=== PATIENT | female | born 1955 | race Two or more races ===

== ENCOUNTER → 2025-02-28 | Day surgery (SDC) | payer OTHER ==
[~2025-02-28] VITALS: Ht 157.5 cm; Wt 56.7 kg
[~2025-02-28] MED LIST: LIDOCAINE 2% (LOCAL ANESTH.) PF 5ml SDV ONE; PROPOFOL 10 MG/ML 20 ML IV ONE; VALS40TA2 PO
--- NOTE | 2025-02-28 09:23 | DVHHP2 ---
GI H&P Pre-Op Assessment Date: 02/28/25 Chief complaint: dysphagia HPI: per clinic note Past medical history: per clinic note Past surgical history: per clinic note Family history: per clinic note Physical exam: General: NAD, AAOX3 HEENT: PERRL, no scleral icterus, normal hearing, gums without lesions or bleeding, oropharynx clear without erythema or exudate. Neck: Supple without enlargement of the thyroid, or lymphadenopathy. Chest: Normal size and shape, no tenderness, lung zuniga clear to auscultation and percussion, nonlabored breathing. Heart: RRR, no murmur Abdomen: non-distended, no tenderness to palpation, +BS, no hepatosplenomegaly Extremities: no edema Neurological: CN II-XII intact, sensation intact in all extremities, 5+ strength in all extremities Skin: No rashes, No jaundice Assessment: - dysphagia Plan: - EGD - Risks (bleeding, infection, perforation, reaction to sedation medications and cardiopulmonary arrest) and benefit of the procedure were explained to patient. Patient agrees to undergo the procedure. RICHARD DANG MD Feb 28, 2025 09:23
[2025-02-28 10:16] VITALS: PULSE 91; RESP 13; TEMP 97.5; O2SAT 99
--- NOTE | 2025-02-28 10:19 | DVHOP2 ---
Operative Report DATE OF OPERATION: 02/28/25 PROCEDURE: Upper Endoscopy. PREOPERATIVE INDICATION: The patient is a 69 -year-old female undergoing endoscopy for dysphagia. POSTOPERATIVE DIAGNOSES: 1. Gastritis 2. Zenker diverticulum at the upper esophageal junction. PROCEDURE PERFORMED BY: Kal Shaw SCOPE: Olympus videoendoscope. ASA CLASS: 3 PREOPERATIVE MEDICATIONS: VICKY with Kartik NULL PROCEDURE IN DETAIL: After obtaining an informed consent, the patient was placed on left lateral decubitus position. The patient was then sedated with the above medications. A bite block was placed between her teeth. The endoscope was then passed through the oropharynx, into the esophagus, and through the stomach and pylorus up to the second and third part of the duodenum. Duodenum was normal in appearance. There was gastritis. Gastric biopsy obtained using cold forceps biopsies. The GE junction was normal in appearance at 35 cm. There was a Zenker diverticulum at the upper esophageal junction which was 15 cm from the incisors. The endoscope was then withdrawn. The patient tolerated the procedure well without difficulty. COMPLICATIONS : None SPECIMENS: Gastric biopsies DISPOSITION: D/C to home PLAN: 1. Await for biopsy result 2. Patient will need to be referred to a cardiothoracic surgeon at higher level care (e.g [place] or [facility]) to repair of the Zenker diverticulum. KAL SHAW MD Feb 28, 2025 10:19
--- NOTE | 2025-02-28 10:19 | DVHDS2 ---
Physician Discharge Progress N Final Diagnosis: Gastritis, Zenker diverticulum Operations or Procedures: Operations or Procedures EGD with cold forceps biopsies Condition on Discharge: Fair Disposition: Home Discharge Instructions: Diet: Regular Activity: No Restrictions, As Tolerated Medications: Resume previous home medications Follow Up Care: Discharge Statement: "Patient was advised to return to the ER or call 911 if any headaches, dizziness, shortness of breath, chest pain, abdominal pain, bleeding, fevers, or worsening of medical condition. Patient was counseled about treatment plan, medications, possible side effects, patientverbalized understanding. All questions were answered to the best of my ability. This discharge took greater then 30 minutes in planning, reviewing documentation, counseling the patient, and discussing with other team members." RICHARD DANG MD Feb 28, 2025 10:19
[2025-02-28 10:31] VITALS: PULSE 71; RESP 16; O2SAT 94
[2025-02-28 11:00] VITALS: BP 125/73; PULSE 72; RESP 12; O2SAT 97
== END | disposition home or self-care (01) ==
LOC: GI 07:37
PROVIDERS: ATTEND Internal Medicine Gastroenterology
DX: R13.10 Dysphagia, unspecified (principal); K29.50 Unspecified chronic gastritis without bleeding; K22.5 Diverticulum of esophagus, acquired; G89.29 Other chronic pain; I10 Essential (primary) hypertension; M06.9 Rheumatoid arthritis, unspecified; M19.90 Unspecified osteoarthritis, unspecified site; Z79.899 Other long term (current) drug therapy; Z98.891 History of uterine scar from previous surgery; Z98.890 Other specified postprocedural states; Z87.891 Personal history of nicotine dependence
CPT/HCPCS: 43239; 88305; 88312; 88342; J2003; J2704; J7030